=== PATIENT | female | born 1935 | race Caucasian/White ===

== ENCOUNTER → 2016-11-28 | Day surgery (SDC) | payer MEDICARE ==
[~2016-11-28] MED LIST: AMBIEN PO; AMBIEN10 MG PO; ASPIRIN81 M1 PO; ASPIRIN81 M2 PO; BENTYL20 MG PO; CITRACAL + D CA1 TA1 PO; FISH OIL 1,2001 CAP PO; FLAGYL PO; FLEXERIL10 MG PO; FOSAMAX PO; GABAPENTIN300 MG; GLUCOSAMINE S1000 M1 PO; LEVAQUIN PO; LEVAQUIN250 MG PO; LISINOPRIL PO; MAGNESIUM200 MG PO; NORVASC PO; OMEPRAZOLE40 M1 PO; PROTONIX PO; RESTORIL15 MG PO; TYLENOL #3 PO; VITAL-D RX TABL1 TAB PO; VITAMIN D1000 UNI2 PO; ZETIA PO
--- NOTE | ~2016-11-28 | OR ---
Unit #: [id number] #: [id number] Patient: VARGHESE LEMUS V [id number] [facility]. [address] [place], [place] [address] [id number] MR#: [id number] NAME: VARGHESE LEMUS V. ROOM: Date of Procedure: 11/28/2016 Admission Date: 11/28/2016 Surgeon: Christiano Price M.D. : 1935 Attending Physician: Christiano Price M.D. Referring Physician: Christiano Price M.D. Primary Care Physician: Logan Caban M.D. OPERATIVE REPORT PREOPERATIVE DIAGNOSIS Medial and lateral meniscal tear, left knee. POSTOPERATIVE DIAGNOSIS Medial and lateral meniscal tear, left knee. PROCEDURE PERFORMED Arthroscopic partial medial and lateral meniscectomy. ANESTHESIA General. ESTIMATED BLOOD LOSS Less than 25. DESCRIPTION OF PROCEDURE The patient was brought to the operating room, given a general anesthetic. Tourniquet placed around the left leg. The left leg was exsanguinated. Tourniquet inflated to 250 and placed in a leg gray and prepped and draped. The arthroscope was introduced through the inferolateral portal. The knee was visualized. The suprapatellar pouch was free of debris. There was a very little arthritis. After this was done, the medial compartment was entered and there was a tear in the medial meniscus. This was resected using the 3.5 incisor blade and then a straight and up-biting basket. After this was completed, the remaining rim was probed and found to be stable. The ACL was intact. Attention was turned to the lateral compartment, there was a tear in the anterior horn of the lateral meniscus. This was able to be removed with the shaver and the remaining meniscus was probed and found to be stable. We then removed all the fluid from the knee. The joint was injected with 15 mL of 0.5% plain Marcaine. Sterile dressing applied and the patient's tourniquet was released and general anesthetic reversed. Estimated blood loss is less than 25 mL. Dictated by... Yael Sheehan/martita TD: 11/29/2016 00:25 JOB #: [id number] Unit #: [id number] #: [id number] Patient: VARGHESE LEMUS V OPERATIVE REPORT X Christiano Price MD PROCEDURE OPERATIVE NOTE
[2016-11-28 08:48] LABS: URINE SOURCE CLEAN CATCH
[2016-11-28 08:53] LABS: URINE APPEARANCE CLEAR; URINE BILIRUBIN NEG (NEG); URINE BLOOD NEG (NEG); URINE COLOR YELLOW; URINE GLUCOSE NEG (NEG); URINE KETONE NEG (NEG); URINE LEUKOCYTE ESTERASE NEG (NEG); URINE NITRATE NEG (NEG); URINE PH 6.5 (5-8); URINE PROTEIN NEG (NEG); URINE SPECIFIC GRAVITY 1.009 (1.003-1.035); URINE UROBILINOGEN 0.2 MG/DL (NEG)
[2016-11-28 08:58] LABS: CULTURE INDICATED? NO
== END | disposition home or self-care (01) ==
LOC: CSUR 07:21
PROVIDERS: Orthopaedic Surgery
DX: S83.242A Other tear of medial meniscus, current injury, left knee, initial encounter (principal); S83.282A Other tear of lateral meniscus, current injury, left knee, initial encounter; I10 Essential (primary) hypertension; Z87.440 Personal history of urinary (tract) infections; Z88.8 Allergy status to other drugs, medicaments and biological substances; Z79.82 Long term (current) use of aspirin; Z79.899 Other long term (current) drug therapy; Z98.41 Cataract extraction status, right eye; Z98.42 Cataract extraction status, left eye; Z98.890 Other specified postprocedural states
CPT/HCPCS: 81003; J2250; J3010